=== PATIENT | male | born 2000 | race Caucasian/White ===

== ENCOUNTER 2018-05-20 23:54 | Emergency (ER) | payer MEDICAID, OTHER ==
[2018-05-21] MEDS: METHOCARBAMOL 750 MG TAB PO (01:37)
[2018-05-21] MEDS: IBUPROFEN 800 MG TAB PO (01:38)
[2018-05-21] MEDS: HYDROCODONE/APAP (5/325) TAB PO (01:38)
== END 2018-05-21 01:56 | disposition home or self-care (01) ==
LOC: FTE 23:54
DX: S20.212A Contusion of left front wall of thorax, initial encounter (principal); S29.012A Strain of muscle and tendon of back wall of thorax, initial encounter; S16.1XXA Strain of muscle, fascia and tendon at neck level, initial encounter; V46.5XXA Car driver injured in collision with other nonmotor vehicle in traffic accident, initial encounter
CPT/HCPCS: 99283-25; Z7502